=== PATIENT | female | born 1980 | race Caucasian/White ===

== ENCOUNTER 2016-12-17 18:31 | Emergency (ER) | payer MEDICAID | END 2016-12-17 19:40 | disposition home or self-care (01) | DX: J01.11 Acute recurrent frontal sinusitis (principal) ==

== ENCOUNTER 2018-01-25 09:38 | Outpatient (CLI) | payer MEDICAID ==
--- NOTE | 2018-01-25 13:00 | XRAY Report ---
COMPLETE CERVICAL SPINE WITH FLEXION AND EXTENSION: 01/25/2018 CLINICAL INDICATION: Left neck pain. FINDINGS: AP, lateral neutral, lateral flexion, lateral extension, oblique, odontoid views of the cervical spine demonstrate normal height and alignment of the vertebral bodies. No abnormal motion is seen on flexion or extension to suggest ligamentous laxity. There is no evidence of fracture or subluxation. The prevertebral soft tissues are unremarkable. IMPRESSION: NORMAL CERVICAL SPINE WITH FLEXION AND EXTENSION. TD: 01/25/2018 12:59
== END 2018-01-25 09:39 | disposition home or self-care (01) ==
LOC: DI.S 09:38
PROVIDERS: ATTEND Nurse Practitioner Family
DX: M54.2 Cervicalgia (principal)
CPT/HCPCS: 72052

== ENCOUNTER 2018-08-02 18:32 | Emergency (ER) | payer MEDICAID ==
[2018-08-02 18:40] VITALS: BP 110/64
[2018-08-02] MEDS ORDERED: BUFFERED LIDOCAINE 10 ML SYRINGE SUBQ ONE (19:03)
--- NOTE | 2018-08-02 19:05 | ED Physician Documentation ---
PD HPI UPPER EXT INJURY - Stated complaint Stated Complaint: R HAND INJ - Chief complaint Chief Complaint: Laceration - History obtained from History obtained from: Patient - History of Present Illness Location: Right (This is a left-handed woman who is up-to-date on tetanus accidentally stabbed her right hand with a box knife or carving a pumpkin at home just prior to arrival) Review of Systems Constitutional: reports: Reviewed and negative Ears: reports: Reviewed and negative Throat: reports: Reviewed and negative PD PAST MEDICAL HISTORY - Past Surgical History Past Surgical History: No - Present Medications Home Medications: Ambulatory Orders Medication Instructions Recorded Confirmed No Known Home Medications 08/02/18 08/02/18 - Allergies Allergies/Adverse Reactions: Allergies Allergy/AdvReac Type Severity Reaction Status Date / Time No Known Drug Allergies Allergy Verified 08/02/18 18:40 - Social History Does the pt smoke?: No Smoking Status: Never smoker Does the pt drink ETOH?: No Does the pt have substance abuse?: No - Immunizations Immunizations are current?: Yes PD ED PE NORMAL - Vitals Vital signs reviewed: Yes - General General: Alert and oriented X 3, No acute distress - Extremities Extremities: Other (2 cm longitudinal laceration on the Lateral side of the hand over the thumb MCP with normal neurovascular status in the thumb.) - Neuro Neuro: Alert and oriented X 3, Normal speech Results - Vitals Vitals: Vital Signs - 24 hr 08/02/18 18:38 Temperature 36.9 C Heart Rate 84 Respiratory 16 Rate Blood Pressure 110/64 O2 Saturation 99 Oxygen O2 Source Room air Procedures - Laceration (location) R hand Length in cm: 2 Wound type: Linear Neurovascular status: Sensory intact, Motor intact, Vascular intact Anesthesia: Lidocaine 1%, With bicarb Wound Preparation: Irrigated copiously NS Skin layer closure: Nylon, Interrupted, Size #-0 - enter number (4-0), Sutures - enter # (5) Other: Tetanus UTD Complexity: Simple Departure - Departure Disposition: 01 Home, Self Care Clinical Impression: Laceration Condition: Good Record reviewed to determine appropriate education?: Yes Instructions: ED Laceration Hand Comments: Come back for any signs of infection which would include: Redness, swelling, drainage, increased pain, or fevers. Follow-up with your physician in about 14 days for suture removal.
[2018-08-02] MEDS ORDERED: BACITRACIN OINT TOP STA (19:26)
== END 2018-08-02 19:36 | disposition home or self-care (01) ==
LOC: ED 18:32
DX: S61.411A Laceration without foreign body of right hand, initial encounter (principal); W26.8XXA Contact with other sharp object(s), not elsewhere classified, initial encounter; Y93.89 Activity, other specified; Y92.009 Unspecified place in unspecified non-institutional (private) residence as the place of occurrence of the external cause
CPT/HCPCS: 12001; 99282; 99283; A9270

== ENCOUNTER 2019-11-24 07:10 | Outpatient (CLI) | payer MEDICAID | END 2019-11-24 07:11 | disposition home or self-care (01) | LOC: LAB.S 07:10 | PROVIDERS: ATTEND Registered Nurse | DX: Z53.9 Procedure and treatment not carried out, unspecified reason (principal) ==

== ENCOUNTER 2019-11-28 09:02 | Outpatient (CLI) | payer MEDICAID ==
[2019-11-28 17:09] LABS: BASOPHILS % (AUTO) 0.1 %; EOSINOPHILS # (AUTO) 0.1 10^3/uL (0.0-0.7); EOSINOPHILS % (AUTO) 1.1 %; HGB - HEMOGLOBIN 13.3 g/dL (12.0-16.0); LYMPHOCYTES # (AUTO) 2.2 10^3/uL (1.5-3.5); LYMPHOCYTES % (AUTO) 30.3 %; MEAN CORPUSCULAR HEMOGLOBIN 28.4 pg (27.0-31.0); MEAN CORPUSCULAR HGB CONC 32.4 g/dL (32.0-36.0); MEAN CORPUSCULAR VOLUME 87.4 fL (81.0-99.0); MONOCYTES # (AUTO) 0.4 10^3/uL (0.0-1.0); MONOCYTES % (AUTO) 4.9 %; NEUTROPHILS # (AUTO) 4.6 10^3/uL (1.5-6.6); NEUTROPHILS % (AUTO) 63.3 %; PLT - PLATELET COUNT 173 10^3/uL (130-450); RED BLOOD COUNT 4.69 10^6/uL (4.20-5.40); RED CELL DISTRIBUTION WIDTH 12.6 % (12.0-15.0); WHITE BLOOD COUNT 7.2 x10^3/uL (4.8-10.8)
[2019-11-28 17:35] LABS: ALBUMIN 4.3 g/dL (3.2-5.5); ALBUMIN/GLOBULIN RATIO 1.4 (1.0-2.2); ALKALINE PHOSPHATASE 60 IU/L (42-121); ALT ALANINE AMINOTRANSFERASE 14 IU/L (10-60); AST ASPARTATE AMINOTRANSFERASE 18 IU/L (10-42); BILIRUBIN,TOTAL 0.5 mg/dL (0.2-1.0); BUN - BLOOD UREA NITROGEN 15 mg/dL (6-20); CALCIUM 9.1 mg/dL (8.5-10.3); CARBON DIOXIDE - CO2 27 mmol/L (21-32); CHLORIDE 105 mmol/L (101-111); CHOL/HDL RATIO 3.8 (<4.4); CHOLESTEROL 184 mg/dL; CREATININE 0.7 mg/dL (0.4-1.0); GFR - MDRD 93 (>89); GLUCOSE 89 mg/dL (70-100); HDL CHOLESTEROL 48 mg/dL; LDL CHOLESTEROL,CALCULATED 117 mg/dL; LDL/HDL RATIO 2.4 (<4.4); SODIUM 139 mmol/L (135-145); TOTAL PROTEIN 7.4 g/dL (6.7-8.2); VLDL CHOLESTEROL 19 mg/dL
== END 2019-11-28 09:03 | disposition home or self-care (01) ==
LOC: LAB.S 09:02
PROVIDERS: ATTEND Registered Nurse
DX: H93.19 Tinnitus, unspecified ear (principal)
CPT/HCPCS: 36415; 80053; 80061; 83721; 84443; 85025

== ENCOUNTER 2021-06-11 12:30 | Outpatient (CLI) | payer MEDICAID | END 2021-06-11 12:31 | disposition home or self-care (01) | LOC: COV 12:30 | PROVIDERS: ATTEND Family Medicine | DX: Z20.822 Contact with and (suspected) exposure to COVID-19 (principal) ==

== ENCOUNTER 2022-02-13 08:00 | Outpatient (CLI) | payer MEDICAID | END 2022-02-13 23:59 | disposition home or self-care (01) | LOC: LAB.S 08:00 | PROVIDERS: ATTEND Emergency Medicine | DX: R05.9 Cough, unspecified (principal); Z20.822 Contact with and (suspected) exposure to COVID-19 ==

== ENCOUNTER 2022-07-21 08:00 | Outpatient (CLI) | payer MEDICAID ==
[2022-07-21 17:45] LABS: BACTERIAL VAGINOSIS DNA NEGATIVE (NEGATIVE); CANDIDA GLABRATA DNA NEGATIVE (NEGATIVE); CANDIDA GROUP DNA NEGATIVE (NEGATIVE); CANDIDA KRUSEI DNA NEGATIVE (NEGATIVE); TRICHOMONAS VAGINALIS DNA NEGATIVE (NEGATIVE)
== END 2022-07-21 23:59 | disposition home or self-care (01) ==
LOC: LAB.S 08:00
PROVIDERS: ATTEND Registered Nurse
DX: Z13.9 Encounter for screening, unspecified (principal)
CPT/HCPCS: 81514

== ENCOUNTER 2024-04-24 07:50 | Outpatient (CLI) | payer OTHER ==
[2024-04-24 14:57] LABS: BILIRUBIN,URINE NEGATIVE (NEGATIVE); GLUCOSE, URINE (UA) NEGATIVE (NEGATIVE); KETONES,URINE (UA) NEGATIVE (NEGATIVE); LEUKOCYTE ESTERASE, URINE NEGATIVE (NEGATIVE); NITRITE,URINE NEGATIVE (NEGATIVE); OCCULT BLOOD,URINE SMALL (NEGATIVE); PH,URINE 5.5 PH (5.0-7.5); PROTEIN,URINE NEGATIVE (NEGATIVE); UROBILINOGEN,URINE 0.2 (NORMAL) E.U./dL (NORMAL)
[2024-04-24 15:45] LABS: CLARITY,URINE CLEAR (CLEAR)
== END 2024-04-24 07:51 | disposition home or self-care (01) ==
LOC: LAB.S 07:50
DX: N92.1 Excessive and frequent menstruation with irregular cycle (principal); N95.1 Menopausal and female climacteric states; R53.83 Other fatigue; G47.00 Insomnia, unspecified; Z87.820 Personal history of traumatic brain injury
CPT/HCPCS: 36415; 81003; 81599; 82024; 82533; 83001